=== PATIENT | male | born 2000 | race African-American/Black ===

== ENCOUNTER 2022-12-11 10:59 | Emergency (ER) | payer BC ==
[~2022-12-11] VITALS: Ht 172.7 cm; Wt 82.1 kg
--- NOTE | 2022-12-11 11:05 | NUR ---
RECEIVED PT 22 YRS MALE CAME FROM HOME WALKING IN C/O lt shoulder pain fpr 2 week able to move his arm no [place] no dislecation limitation with movment able to wigle his lt hand torres
--- NOTE | 2022-12-11 11:19 | NUR ---
DR ROBERTS AT BEDSIDE FOR EVAL
[2022-12-11] MEDS ORDERED: IBUP-1955 PO (12:16)
[2022-12-11] MEDS ORDERED: KETOROLAC TROMETHAMINE 15 MG/ML VIAL ONE (12:21)
[2022-12-11] MEDS ORDERED: KETOROLAC TROMETHAMINE INJ 30 MG/ML VIAL IM ONE (12:30)
[2022-12-11 12:31] VITALS: BP 120/70
--- NOTE | 2022-12-11 12:31 | NUR ---
Patient discharged to home in stable condition. Written and verbal after care instructions given. Patient verbalizes understanding of instruction.
== END 2022-12-11 12:32 | disposition home or self-care (01) ==
LOC: ER 11:04
DX: S46.812A Strain of other muscles, fascia and tendons at shoulder and upper arm level, left arm, initial encounter (principal); J45.909 Unspecified asthma, uncomplicated; Z60.2 Problems related to living alone; Y04.0XXA Assault by unarmed brawl or fight, initial encounter; Y93.89 Activity, other specified; Y92.89 Other specified places as the place of occurrence of the external cause; Y99.8 Other external cause status
CPT/HCPCS: 99283; 96372; 73030; J1885